=== PATIENT | female | born 1960 | race Caucasian/White ===

== ENCOUNTER 2019-01-28 12:58 | Emergency (ER) | payer OTHER ==
[~2019-01-28] VITALS: Ht 162.6 cm; Wt 73.6 kg
[2019-01-28] MEDS ORDERED: TRIAMCINOLONE ACETONIDE 40 MG/ML, 1ML IM ONE (13:30)
[2019-01-28] MEDS ORDERED: CEFDINIR 300 MG CAPSULE ONE (13:47)
--- NOTE | 2019-01-28 13:53 | NUR ---
THIS IS A 58 YO FEMALE COMING IN FOR FLU-LIKE SYMPTOMS AND INCREASED WORK OF BREATHING. PT HAS HX OF ASTHMA. PT STATES SYMPTOMS STARTED THURSDAY WITH NAUSEA/VOMITING, COUGH, FEVER, AND FATIGUE. PATIENT WAS SEEN AT [employer] AND WAS PUT ON TAMIFLU, STATES SYMPTOMS HAVE NOT GOTTEN BETTER. PATIENT RESPIRATIONS ARE AUDILBE, BUT REGULAR AND MILDLY LABORED AFTER COUGHING. PATIENT PLACED ON CONTINUOUS SPO2 AT 99%, CYCLE BP Q1HR. CALL LIGHT IN REACH.
--- NOTE | 2019-01-28 13:58 | NUR ---
PATIENT MEDICATED PER EMAR, NEEDS ADDRESSED.
[2019-01-28] MEDS ORDERED: CEFDINIR 300 MG CAPSULE PO ONE (14:00)
[2019-01-28 14:22] VITALS: BP 125/73
[2019-01-29] MEDS ORDERED: BUDE10.2 INH (16:03)
[2019-01-29] MEDS ORDERED: TESSALON PERLE (16:03)
[2019-01-29] MEDS ORDERED: CYCL5TAB PO (16:03)
[2019-01-29] MEDS ORDERED: AMLO10TA8 PO (16:03)
[2019-01-29] MEDS ORDERED: MONT10TA6 PO (16:03)
[2019-01-29] MEDS ORDERED: TELM80TA PO (16:03)
[2019-01-29] MEDS ORDERED: TRAZ50TA66 PO (16:03)
[2019-01-29] MEDS ORDERED: ALBUTEROL INHALER (16:03)
[2019-01-29] MEDS ORDERED: ACIPHEX (16:03)
[2019-01-29] MEDS ORDERED: CEFDINIR (16:03)
[2019-01-29] MEDS ORDERED: DOXYCYCLINE (16:03)
[2019-01-29] MEDS ORDERED: ALBUTEROL NEBULIZER (16:03)
[2019-01-29] MEDS ORDERED: TAMIFLU (16:03)
[2019-01-29] MEDS ORDERED: DICY10CA3 PO (16:06)
== END 2019-01-28 14:36 | disposition home or self-care (01) ==
LOC: ED 14:00
DX: J11.00 Influenza due to unidentified influenza virus with unspecified type of pneumonia (principal); I10 Essential (primary) hypertension; J45.909 Unspecified asthma, uncomplicated
CPT/HCPCS: 71045; 96372; 99283; J3301

== ENCOUNTER 2019-01-29 14:55 | Inpatient (IN) | payer OTHER ==
[~2019-01-29] VITALS: Ht 162.6 cm; Wt 73.1 kg
[2019-01-29] MEDS ORDERED: CEFTRIAXONE PMX 1GM/50ML 50 ML ONE (15:29)
[2019-01-29] MEDS ORDERED: SODIUM CHLORIDE 0.9% 1,000ML IVBOLUS ONE (15:30)
[2019-01-29] MEDS ORDERED: DOXYCYCLINE 100 MG in DEXTROSE 5% 250 ML IV ONE (15:30)
[2019-01-29] MEDS ORDERED: CEFTRIAXONE PMX 1GM/50ML 50 ML IV ONE (15:30)
[2019-01-29] MEDS ORDERED: SODIUM CHLORIDE FLUSH 10ML SYR IVF ONE (15:30)
[2019-01-29 15:49] LABS: BASOPHILS # (AUTO) 0.02 x10^3/uL (0-0.1); BASOPHILS % (AUTO) 0 % (0-1); EOSINOPHILS % (AUTO) 1 % (1-7); LYMPHOCYTES # (AUTO) 0.93 x10^3/uL (1-3.4); LYMPHOCYTES % (AUTO) 10 % (22-44); MD NO; MEAN CORPUSCULAR HEMOGLOBIN 29.1 pg (27.0-34.8); MEAN CORPUSCULAR HGB CONC 32.8 g/dL (32.4-35.8); MEAN CORPUSCULAR VOLUME 88.7 fL (80-100); MEAN PLATELET VOLUME 7.4 fL (7.4-10.4); MONOCYTES # (AUTO) 0.52 x10^3/uL (0.2-0.8); MONOCYTES % (AUTO) 6 % (2-9); NEUTROPHILS # (AUTO) 7.72 x10^3/uL (1.8-6.8); NEUTROPHILS % (AUTO) 83 % (42-75); PLATELET COUNT 270 x10^3/uL (130-400); RED BLOOD COUNT 4.35 x10^6/uL (3.82-5.3); RED CELL DISTRIBUTION WIDTH 15.3 % (9.6-15.2)
[2019-01-29 15:55] LABS: ALANINE AMINOTRANSFERASE 38 U/L (12-78); ALBUMIN 3.5 g/dL (3.4-5.0); ANION GAP 10 mmol/L (5-15); CALCIUM 8.1 mg/dL (8.5-10.1); CHLORIDE 98 mmol/L (98-107); CREATININE 0.72 mg/dL (0.55-1.02)
[2019-01-29 15:57] LABS: ALKALINE PHOSPHATASE 124 U/L (45-117); BILIRUBIN,TOTAL 0.3 mg/dL (0.2-1.0); TOTAL PROTEIN 7.5 g/dL (6.4-8.2)
[2019-01-29] MEDS ORDERED: TRAZ50TA66 PO (16:03)
[2019-01-29] MEDS ORDERED: TELM80TA PO (16:03)
[2019-01-29] MEDS ORDERED: BUDE10.2 INH (16:03)
[2019-01-29] MEDS ORDERED: DOXYCYCLINE (16:03)
[2019-01-29] MEDS ORDERED: CEFDINIR (16:03)
[2019-01-29] MEDS ORDERED: ALBUTEROL NEBULIZER (16:03)
[2019-01-29] MEDS ORDERED: ALBUTEROL INHALER (16:03)
[2019-01-29] MEDS ORDERED: AMLO10TA8 PO (16:03)
[2019-01-29] MEDS ORDERED: ACIPHEX (16:03)
[2019-01-29] MEDS ORDERED: TAMIFLU (16:03)
[2019-01-29] MEDS ORDERED: TESSALON PERLE (16:03)
[2019-01-29] MEDS ORDERED: MONT10TA6 PO (16:03)
[2019-01-29] MEDS ORDERED: CYCL5TAB PO (16:03)
--- NOTE | 2019-01-29 16:04 | NUR ---
PT UPRIGHT ON GURNEY AWAKE & COMFORTABLE, RESPONDS TO STAFF APPROP, OCCAS COUGH BUT NAD OR RESP DISTRESS NOTED, COMFORT MEASURES PROVIDED, FAMILY AT BS, CALL LIGHT WITHIN REACH.
[2019-01-29] MEDS ORDERED: DICY10CA3 PO (16:06)
--- NOTE | 2019-01-29 16:14 | NUR ---
PT TO CTA
[2019-01-29] MEDS ORDERED: POTASSIUM CHLORIDE 40 MEQ in D5%-0.9% NACL 1,000 ML IV SCH (16:30)
--- NOTE | 2019-01-29 16:33 | NUR ---
PT RETURNED FROM CTA
[2019-01-29] MEDS ORDERED: OMNIPAQUE 350 MG/ML, 100ML BOTTLE ONE (16:40)
--- NOTE | 2019-01-29 17:03 | NUR ---
PT AMBULATED TO [facility], NOW UPRIGHT ON [facility] AWAKE WITH SOB & COUGH AFTER ACTIVITY, RESPONDS TO STAFF APPROP, NAD OR RESP DISTRESS NOTED ONCE RESTED BACK ON [facility], COMFORT MEASURES PROVIDED, FAMILY AT BS, CALL LIGHT WITHIN REACH.
[2019-01-29] MEDS ORDERED: ENOXAPARIN 40 MG/0.4 ML ONE (17:23)
[2019-01-29] MEDS ORDERED: methylPREDNISolone SOD SUCC 125 MG/2 ML ONE (17:23)
[2019-01-29] MEDS ORDERED: methylPREDNISolone SOD SUCC 125 MG/2 ML IVPush ONE (17:30)
[2019-01-29] MEDS ORDERED: ONDANSETRON ODT 4 MG PO PRN (17:30)
[2019-01-29] MEDS ORDERED: ONDANSETRON 2MG/ML, 2ML IVPush PRN (17:30)
[2019-01-29] MEDS: ENOXAPARIN 40 MG/0.4 ML SQ SCH (17:30)
[2019-01-29] MEDS ORDERED: POTASSIUM CHLORIDE 20 MEQ in SODIUM CHLORIDE 0.9% 250 ML IV ONE (17:30)
[2019-01-29] MEDS ORDERED: GUAIFENESIN 200 MG TABLET PO PRN (17:30)
--- NOTE | 2019-01-29 18:05 | NUR ---
PT REMAINS UPRIGHT ON GURNEY AWAKE & COMFORTABLE, RESPONDS TO STAFF APPROP, NAD OR RESP DISTRESS NOTED, COMFORT MEASURES PROVIDED, CALL LIGHT WITHIN REACH.
--- NOTE | 2019-01-29 18:20 | NUR ---
Pt to be admitted to [facility], room 407. Report called to [facility].
[2019-01-29 18:35] VITALS: BP 146/83
[2019-01-29] MEDS ORDERED: MONTELUKAST 10 MG TABLET PO SCH (19:38)
[2019-01-29] MEDS: BUDESONIDE 0.5 MG/2 ML INHA INH SCH (19:51)
[2019-01-29] MEDS: ALBUTEROL/IPRATROPIUM 2.5MG/0.5MG, 3 ML NPPB SCH (19:51)
[2019-01-29] MEDS: MONTELUKAST 10 MG TABLET PO SCH (20:36)
[2019-01-29] MEDS: TRAZODONE 50MG TABLET PO SCH (20:36)
[2019-01-29] MEDS: CYCLOBENZAPRINE 10 MG TABLET PO PRN (20:43)
[2019-01-29] MEDS: POTASSIUM CHLORIDE 20 MEQ TAB.ER.PRT PO SCH (23:49)
[2019-01-30 00:01] VITALS: BP 131/76
[2019-01-30] MEDS: ALBUTEROL/IPRATROPIUM 2.5MG/0.5MG, 3 ML NPPB SCH ×4 (02:05→20:43)
[2019-01-30 05:35] LABS: BASOPHILS % (AUTO) 0 % (0-1); EOSINOPHILS # (AUTO) 0.05 x10^3/uL (0-0.4); EOSINOPHILS % (AUTO) 1 % (1-7); LYMPHOCYTES # (AUTO) 0.56 x10^3/uL (1-3.4); LYMPHOCYTES % (AUTO) 9 % (22-44); MD NO; MEAN CORPUSCULAR HEMOGLOBIN 29.2 pg (27.0-34.8); MEAN CORPUSCULAR VOLUME 88.6 fL (80-100); MEAN PLATELET VOLUME 7.4 fL (7.4-10.4); MONOCYTES # (AUTO) 0.28 x10^3/uL (0.2-0.8); MONOCYTES % (AUTO) 4 % (2-9); NEUTROPHILS # (AUTO) 5.43 x10^3/uL (1.8-6.8); NEUTROPHILS % (AUTO) 86 % (42-75); PLATELET COUNT 253 x10^3/uL (130-400); RED BLOOD COUNT 3.91 x10^6/uL (3.82-5.3); RED CELL DISTRIBUTION WIDTH 15.4 % (9.6-15.2)
[2019-01-30 05:39] LABS: ANION GAP 7 mmol/L (5-15); CALCIUM 8.2 mg/dL (8.5-10.1); CHLORIDE 106 mmol/L (98-107)
[2019-01-30 05:42] LABS: CREATININE 0.69 mg/dL (0.55-1.02)
[2019-01-30 08:15] VITALS: BP 124/73
[2019-01-30] MEDS: LOSARTAN 50MG TABLET PO SCH ×2 (08:18→08:33)
[2019-01-30] MEDS: DOXYCYCLINE 100MG CAP PO SCH ×2 (08:18→21:01)
[2019-01-30] MEDS: POTASSIUM CHLORIDE 20 MEQ TAB.ER.PRT PO SCH (08:18)
[2019-01-30] MEDS ORDERED: AMLODIPINE 10 MG TAB PO SCH (09:00)
[2019-01-30] MEDS: OMEPRAZOLE 10 MG CAPSULE.DR PO SCH ×2 (10:40→17:45)
[2019-01-30] MEDS: BUDESONIDE 0.5 MG/2 ML INHA INH SCH ×2 (10:47→20:43)
[2019-01-30] MEDS: CEFTRIAXONE PMX 2GM/50ML 50 ML IV SCH (11:48)
[2019-01-30 13:31] VITALS: BP 145/79
[2019-01-30] MEDS ORDERED: CEFTRIAXONE PMX 1GM/50ML 50 ML IV SCH (16:00)
[2019-01-30] MEDS: ENOXAPARIN 40 MG/0.4 ML SQ SCH (17:45)
[2019-01-30 19:32] VITALS: BP 146/77
[2019-01-30] MEDS: MONTELUKAST 10 MG TABLET PO SCH (21:01)
[2019-01-30] MEDS: TRAZODONE 50MG TABLET PO SCH (21:01)
[2019-01-30] MEDS: CYCLOBENZAPRINE 10 MG TABLET PO PRN (21:01)
[2019-01-30] MEDS: DICYCLOMINE 10 MG CAPSULE PO PRN (21:20)
[2019-01-31 00:03] VITALS: BP 158/94
[2019-01-31] MEDS: ACETAMINOPHEN 325 MG TABLET PO PRN (00:11)
[2019-01-31] MEDS: ALBUTEROL/IPRATROPIUM 2.5MG/0.5MG, 3 ML NPPB SCH ×4 (02:24→18:37)
[2019-01-31] MEDS: OMEPRAZOLE 10 MG CAPSULE.DR PO SCH ×2 (06:05→15:24)
[2019-01-31 06:45] VITALS: BP 109/71
[2019-01-31] MEDS: BUDESONIDE 0.5 MG/2 ML INHA INH SCH ×2 (06:49→18:38)
[2019-01-31 07:20] VITALS: BP 135/78
[2019-01-31] MEDS: DOXYCYCLINE 100MG CAP PO SCH ×2 (08:20→19:58)
[2019-01-31] MEDS: TEMPLATE NON-FORMULARY MED. (Telmisartan 80 MG) HOMEMEDPO SCH (08:20)
[2019-01-31] MEDS: CEFTRIAXONE PMX 2GM/50ML 50 ML IV SCH (12:03)
[2019-01-31 13:07] VITALS: BP 139/81
[2019-01-31] MEDS: FLUCONAZOLE 200 MG TABLET PO SCH (15:24)
[2019-01-31] MEDS: SENNA/DOCUSATE TABLET PO SCH (15:25)
[2019-01-31] MEDS: VALACYCLOVIR 500MG TABLET PO SCH (18:13)
[2019-01-31] MEDS: AMLODIPINE 10 MG TAB PO SCH (18:14)
[2019-01-31] MEDS: ENOXAPARIN 40 MG/0.4 ML SQ SCH (18:16)
[2019-01-31 19:28] VITALS: BP 149/75
[2019-01-31] MEDS: MONTELUKAST 10 MG TABLET PO SCH (19:58)
[2019-01-31] MEDS: DICYCLOMINE 10 MG CAPSULE PO PRN (22:04)
[2019-01-31] MEDS: TRAZODONE 50MG TABLET PO SCH (22:04)
[2019-01-31] MEDS: CYCLOBENZAPRINE 10 MG TABLET PO PRN (22:04)
[2019-02-01] MEDS: ALBUTEROL/IPRATROPIUM 2.5MG/0.5MG, 3 ML NPPB SCH ×4 (00:49→21:24)
[2019-02-01 00:59] VITALS: BP 148/78
[2019-02-01] MEDS: VALACYCLOVIR 500MG TABLET PO SCH ×4 (02:04→22:57)
[2019-02-01] MEDS: OMEPRAZOLE 10 MG CAPSULE.DR PO SCH ×2 (06:05→16:52)
[2019-02-01] MEDS: BUDESONIDE 0.5 MG/2 ML INHA INH SCH ×2 (06:59→21:24)
[2019-02-01 07:42] VITALS: BP 119/71
[2019-02-01] MEDS: SENNA/DOCUSATE TABLET PO SCH (08:15)
[2019-02-01] MEDS: AMLODIPINE 10 MG TAB PO SCH (08:15)
[2019-02-01] MEDS: DOXYCYCLINE 100MG CAP PO SCH ×2 (08:15→20:16)
[2019-02-01] MEDS: FLUCONAZOLE 200 MG TABLET PO SCH (08:15)
[2019-02-01] MEDS: TEMPLATE NON-FORMULARY MED. (Telmisartan 80 MG) HOMEMEDPO SCH (08:16)
[2019-02-01] MEDS: POLYETHYLENE GLYCOL 17 GM PACKET PO SCH (09:30)
[2019-02-01] MEDS: CEFTRIAXONE PMX 2GM/50ML 50 ML IV SCH (11:44)
[2019-02-01] MEDS: DICYCLOMINE 10 MG CAPSULE PO PRN (11:44)
[2019-02-01] MEDS: BENZONATATE 100 MG CAPSULE PO SCH ×3 (12:10→20:16)
[2019-02-01 13:15] VITALS: BP 126/76
[2019-02-01] MEDS ORDERED: ALBUTEROL/IPRATROPIUM 2.5MG/0.5MG, 3 ML NPPB PRN (16:00)
[2019-02-01] MEDS: ENOXAPARIN 40 MG/0.4 ML SQ SCH (17:41)
[2019-02-01 19:21] VITALS: BP 148/83
[2019-02-01] MEDS: MONTELUKAST 10 MG TABLET PO SCH (20:16)
[2019-02-01] MEDS: TRAZODONE 50MG TABLET PO SCH (20:16)
[2019-02-01] MEDS: CYCLOBENZAPRINE 10 MG TABLET PO PRN (20:50)
[2019-02-02] MEDS: ALBUTEROL/IPRATROPIUM 2.5MG/0.5MG, 3 ML NPPB SCH ×3 (02:16→14:30)
[2019-02-02 03:00] VITALS: BP 139/78
[2019-02-02] MEDS: VALACYCLOVIR 500MG TABLET PO SCH ×2 (05:52→14:40)
[2019-02-02] MEDS: OMEPRAZOLE 10 MG CAPSULE.DR PO SCH ×2 (05:52→16:52)
[2019-02-02 08:31] VITALS: BP 125/71
[2019-02-02] MEDS: BENZONATATE 100 MG CAPSULE PO SCH ×2 (08:47→16:52)
[2019-02-02] MEDS: AMLODIPINE 10 MG TAB PO SCH (08:47)
[2019-02-02] MEDS: FLUCONAZOLE 200 MG TABLET PO SCH (08:47)
[2019-02-02] MEDS: DOXYCYCLINE 100MG CAP PO SCH (08:48)
[2019-02-02] MEDS: SENNA/DOCUSATE TABLET PO SCH (08:48)
[2019-02-02] MEDS: POLYETHYLENE GLYCOL 17 GM PACKET PO SCH (08:50)
[2019-02-02] MEDS: TEMPLATE NON-FORMULARY MED. (Telmisartan 80 MG) HOMEMEDPO SCH (08:51)
[2019-02-02] MEDS: BUDESONIDE 0.5 MG/2 ML INHA INH SCH (09:00)
[2019-02-02] MEDS: ACETAMINOPHEN 325 MG TABLET PO PRN (10:03)
[2019-02-02] MEDS: CEFTRIAXONE PMX 2GM/50ML 50 ML IV SCH (11:43)
[2019-02-02 13:53] VITALS: BP 134/78
[2019-02-02] MEDS ORDERED: DOXY100T23 PO (16:00)
[2019-02-02] MEDS ORDERED: PRED5TAB PO (16:00)
[2019-02-02] MEDS ORDERED: IPRA3AMP30 NPPB (16:00)
[2019-02-02] MEDS ORDERED: CEFD300C37 PO (16:00)
[2019-02-02] MEDS: ENOXAPARIN 40 MG/0.4 ML SQ SCH (16:52)
== END 2019-02-02 17:30 | disposition home or self-care (01) | DRG 871 ==
LOC: ED 15:46 → EDIP 16:05 → 4WST 18:33
PROVIDERS: ADMIT Family Medicine; ATTEND Internal Medicine
DX: A41.9 Sepsis, unspecified organism (principal); J15.9 Unspecified bacterial pneumonia; E87.1 Hypo-osmolality and hyponatremia; J44.0 Chronic obstructive pulmonary disease with (acute) lower respiratory infection; J44.1 Chronic obstructive pulmonary disease with (acute) exacerbation; E87.6 Hypokalemia; F17.200 Nicotine dependence, unspecified, uncomplicated; G47.00 Insomnia, unspecified; I10 Essential (primary) hypertension; I35.8 Other nonrheumatic aortic valve disorders; K44.9 Diaphragmatic hernia without obstruction or gangrene
CPT/HCPCS: 36415; 84145; J7042; J7620; J7626; 71045; 71275; 80048; 80053; 83605; 83735; 84132; 85025; 87040; 87070; 87081; 87205; 93005; 93306; 94640; G0378; J0696; J1650; J3480; J7060; Q9967; J2930; J7030; J7050; J7512

== ENCOUNTER 2019-02-13 03:13 | Emergency (ER) ==
[~2019-02-13] VITALS: Ht 162.6 cm; Wt 73.3 kg
[~2019-02-13 03:13] MED LIST: ACIPHEX; ALBUTEROL INHALER; ALBUTEROL NEBULIZER; AMLO10TA8 PO; BUDE10.2 INH; CEFD300C37 PO; CEFDINIR; CYCL5TAB PO; DICY10CA3 PO; DOXY100T23 PO; DOXYCYCLINE; IPRA3AMP30 NPPB; MONT10TA6 PO; PRED5TAB PO; TAMIFLU; TELM80TA PO; TESSALON PERLE; TRAZ50TA66 PO
[2019-02-13] MEDS ORDERED: KETOROLAC 30 MG/1 ML ONE (03:57)
[2019-02-13] MEDS ORDERED: LORazepam 2 MG/ML, 1ML ONE (03:58)
[2019-02-13 04:00] LABS: RAPID INFLUENZA A Negative (Negative); RAPID INFLUENZA B Negative (Negative)
[2019-02-13] MEDS ORDERED: LORazepam 2 MG/ML, 1ML IVPush ONE (04:00)
[2019-02-13] MEDS ORDERED: KETOROLAC 30 MG/1 ML IVPush ONE (04:00)
[2019-02-13] MEDS ORDERED: HYDROcodone/APAP 5/325 TABLET PO ONE (04:00)
[2019-02-13 04:05] LABS: BASOPHILS # (AUTO) 0.12 x10^3/uL (0-0.1); BASOPHILS % (AUTO) 1 % (0-1); EOSINOPHILS # (AUTO) 0.18 x10^3/uL (0-0.4); EOSINOPHILS % (AUTO) 2 % (1-7); LYMPHOCYTES # (AUTO) 1.99 x10^3/uL (1-3.4); LYMPHOCYTES % (AUTO) 16 % (22-44); MD NO; MEAN CORPUSCULAR HEMOGLOBIN 29.4 pg (27.0-34.8); MEAN CORPUSCULAR HGB CONC 33.3 g/dL (32.4-35.8); MEAN CORPUSCULAR VOLUME 88.4 fL (80-100); MEAN PLATELET VOLUME 6.6 fL (7.4-10.4); MONOCYTES # (AUTO) 0.85 x10^3/uL (0.2-0.8); MONOCYTES % (AUTO) 7 % (2-9); NEUTROPHILS # (AUTO) 9.14 x10^3/uL (1.8-6.8); NEUTROPHILS % (AUTO) 74 % (42-75); PLATELET COUNT 436 x10^3/uL (130-400); RED CELL DISTRIBUTION WIDTH 15.2 % (9.6-15.2)
[2019-02-13 04:18] LABS: ALBUMIN 3.4 g/dL (3.4-5.0); ANION GAP 8 mmol/L (5-15); CALCIUM 8.7 mg/dL (8.5-10.1); CHLORIDE 98 mmol/L (98-107); CREATININE 0.57 mg/dL (0.55-1.02)
[2019-02-13] MEDS ORDERED: POTASSIUM CHLORIDE 20 MEQ TAB.ER.PRT PO ONE (04:30)
[2019-02-13] MEDS ORDERED: POTASSIUM CHLORIDE 20 MEQ TAB.ER.PRT ONE (05:33)
[2019-02-13 05:43] VITALS: BP 105/56
--- NOTE | 2019-02-13 05:43 | NUR ---
PT STRAIGHT CATH'ED FOR URINE
[2019-02-13 06:00] LABS: MICROSCOPIC NOT IND
[2019-02-13 06:10] LABS: CULTURE INDICATED? NO
[2019-02-13 06:20] LABS: AMPHETAMINE SCREEN, URINE Negative (Negative); BARBITURATE SCREEN, URINE Negative (Negative); BENZODIAZEPINE SCREEN, URINE Negative (Negative); CANNABINOID SCREEN, URINE Negative (Negative); COCAINE SCREEN, URINE Negative (Negative); METHADONE SCREEN, URINE Negative (Negative); OPIATE SCREEN, URINE Negative (Negative)
== END 2019-02-13 06:43 | disposition home or self-care (01) ==
LOC: ED 03:29
DX: J15.9 Unspecified bacterial pneumonia (principal); E87.6 Hypokalemia; I10 Essential (primary) hypertension; J45.909 Unspecified asthma, uncomplicated; Z87.891 Personal history of nicotine dependence
CPT/HCPCS: 36415; 71045; 80048; 80307; 81003; 82040; 83605; 84145; 85025; 87040; 87400; 93005; 96374; 96375; 99284; J1885; J2060

== ENCOUNTER 2020-01-08 22:33 | Emergency (ER) | payer OTHER ==
[~2020-01-08] VITALS: Ht 165.1 cm; Wt 76.0 kg
[2020-01-08 22:42] VITALS: BP 170/83
--- NOTE | 2020-01-08 22:54 | NUR ---
PATIENT WALKED BACK FROM TRIAGE WITH CHIEF C/O MULTIPLE OPEN SORES ON BILATERAL UPPER EXTREMITIES AND A FEW BILATERAL LOWER EXTREMITIES X2 MONTHS. PATIENT C/O RASH ON RIGHT CLAVICLE AREA. MULTIPLE SORES VISUALIZED ON BOTH ARMS, SOME OPEN AND OTHERS SCABBED OVER. NO SIGNS OF ACUTE DISTRESS. CONNECTED TO VITALS MACHINE, CALL LIGHT WITHIN REACH.
--- NOTE | 2020-01-08 22:54 | NUR ---
ERMD AT BEDSIDE FOR EVALUATION.
[2020-01-08] MEDS ORDERED: BACITRACIN OINT 500U/GM, 28GM EXT STA (23:04)
[2020-01-08] MEDS ORDERED: NEOSPORIN OINT. PKT 1 PACKET ONE ×2 (23:12→23:13)
[2020-01-08] MEDS ORDERED: hydrOXyzine 50MG TABLET ONE (23:12)
--- NOTE | 2020-01-08 23:23 | NUR ---
Patient given discharge instructions and prescription and they have confirmed that they understand the instructions, all questions answered. All patient belongings gathered and taken with patient. Patient ambulatory with steady gait from ED.
== END 2020-01-08 23:24 | disposition home or self-care (01) ==
LOC: ED 23:00
DX: L29.9 Pruritus, unspecified (principal); I10 Essential (primary) hypertension; J45.909 Unspecified asthma, uncomplicated; Z87.891 Personal history of nicotine dependence
CPT/HCPCS: 99283; Q0177